=== PATIENT | female | born 1950 | race Caucasian/White ===

== ENCOUNTER 2020-07-01 09:52 | Outpatient (CLI) | payer MEDICARE, SELFPAY | END 2020-07-01 09:53 | disposition home or self-care (01) | LOC: RAD 04-09 12:31 | PROVIDERS: PCP Nurse Practitioner Family; Visit Provider Family Medicine | DX: R04.2 Hemoptysis (principal) | CPT/HCPCS: 85025 ==

== ENCOUNTER → 2020-07-01 10:04 | Outpatient (BNVA) | payer MEDICARE, SELFPAY | PROVIDERS: Family Provider Nurse Practitioner Family; PCP Nurse Practitioner Family; Visit Provider Family Medicine | DX: R04.2 Hemoptysis (principal); J44.9 Chronic obstructive pulmonary disease, unspecified | CPT/HCPCS: 71046 ==